=== PATIENT | male | born 1975 | race African-American/Black ===

== ENCOUNTER 2016-09-25 14:42 | Emergency (ER) | payer SELFPAY ==
--- NOTE | 2016-09-25 14:52 | NUR ---
[facility], CALLED 3 TIMES AND NOT FOUND
== END 2016-09-25 14:54 | disposition left against medical advice (07) ==
LOC: ER 14:47
DX: Z53.21 Procedure and treatment not carried out due to patient leaving prior to being seen by health care provider (principal)